=== PATIENT | male | born 1965 | race Caucasian/White ===

== ENCOUNTER 2016-11-24 16:20 | Inpatient (IN) | payer MEDICAID, SELFPAY ==
--- NOTE | 2016-11-24 17:00 | C.PDOC ---
History Of Present Illness 51 year old patient presents to the ED complaining of intermittent RLQ abdominal pain for the past few days. Patient states he has a normal appetite. He denies taking any pain medications. Patient reports he has a heart murmur. Nothing exacerbates the pain. Patient denies having any allergies, surgical history, past medical history, fever, chest pain, shortness of breath, vomiting , diarrhea, or dysuria. Time Seen by Provider: 11/24/16 16:59 Chief Complaint (Nursing): Abdominal Pain History Per: Patient History/Exam Limitations: no limitations Onset/Duration Of Symptoms: Days (2) Current Symptoms Are (Timing): Still Present Context: Other Severity: Mild Pain Scale Rating Of: 3 Location Of Pain/Discomfort: RLQ Radiation Of Pain To:: None Quality Of Discomfort: "Pain" Exacerbating Factors: None Alleviating Factors: None Recent travel outside of the [place]: No Past Medical History Reviewed: Historical Data, Nursing Documentation, Vital Signs Vital Signs: Last Vital Signs Temp 98.2 F 11/24/16 16:28 Pulse 86 11/24/16 18:25 Resp 20 11/24/16 18:25 BP 138/86 11/24/16 18:25 Pulse Ox 97 11/24/16 19:41 Family History: States: Unknown Family Hx - Social History Hx Tobacco Use: No Hx Alcohol Use: No Hx Substance Use: No - Immunization History Hx Tetanus Toxoid Vaccination: No Hx Influenza Vaccination: No Hx Pneumococcal Vaccination: No Review Of Systems Except As Marked, All Systems Reviewed And Found Negative. Constitutional: Negative for: Fever Cardiovascular: Negative for: Chest Pain Respiratory: Negative for: Shortness of Breath Gastrointestinal: Positive for: Abdominal Pain (RLQ). Negative for: Vomiting, Diarrhea Genitourinary: Negative for: Dysuria Physical Exam - Physical Exam Appears: Non-toxic, No Acute Distress Skin: Warm, Dry Head: Atraumatic, Normacephalic Eye(s): bilateral: Normal Inspection, EOMI Neck: Normal ROM, Supple Chest: Symmetrical Cardiovascular: Murmur (2 out of 6 systolic; known to patient) Respiratory: Normal Breath Sounds, No Rales, No Rhonchi, No Wheezing Gastrointestinal/Abdominal: Soft, Tenderness (RLQ), No Guarding, No Rebound Back: Normal Inspection, No CVA Tenderness Extremity: Normal ROM Neurological/Psych: Oriented x3, Normal Speech, Normal Cognition Gait: Steady ED Course And Treatment - Laboratory Results Result Diagrams: 11/24/16 17:21 11/24/16 17:21 O2 Sat by Pulse Oximetry: 97 (RA) Pulse Ox Interpretation: Normal Medical Decision Making Medical Decision Makin disc case w surgery resident. pagekeily Martinze. [address] Martinez who will admit and plan for surgery in am CT Abdomen and Pelvis With Intravenous Contrast. Read by: Tara Gutierrez MD CLINICAL HISTORY: 51 years old, male; Pain; Abdominal pain; Additional info: Rlq abdominal pain TECHNIQUE: Axial computed tomography images of the abdomen and pelvis with intravenous contrast. This CT exam was performed using one or more of the following dose reduction techniques : automated exposure control, adjustment of the mA and/or kV according to patient size, and/ or use of iterative reconstruction technique. Coronal and sagittal reformatted images were created and reviewed. CONTRAST: 100 mL of [id number] administered intravenously. EXAM DATE/TIME: 11/24/2016 5:09 PM COMPARISON: There are no prior studies for comparison. FINDINGS: Lower thorax: Heart size is normal. There is a small hiatal hernia. There is minimal scarring at the lung bases. ABDOMEN: Liver: There is fatty infiltration of the liver Gallbladder and bile ducts: unremarkable Pancreas: unremarkable Spleen: unremarkable Adrenals: unremarkable Kidneys and ureters: unremarkable Stomach and bowel: Stomach is incompletely distended. Rotation is normal. There are mildly dilated small bowel loops in the left upper quadrant. There are scattered air- fluid levels. There is no obstruction. Terminal ileum is unremarkable. Appendix is normal in caliber. There is inflammation in the right flank adjacent to the tip of the appendix, images 58-61, series 2. Colon is incompletely distended which limits evaluation. Appendix: See stomach and bowel PELVIS: Bladder: unremarkable Reproductive: Seminal vesicles and prostate are unremarkable. ABDOMEN and PELVIS: Intraperitoneal space: There is no free air or free fluid. Bones/joints: There are degenerative changes in the osseus structures. Soft tissues: unremarkable Vasculature: Vascular structures are unremarkable. Lymph nodes: There is shotty para-aortic adenopathy. IMPRESSION: Inflammation at the tip in the appendix in the right flank, appendicitis involving the appendiceal tip cannot be excluded; no acute solid visceral abnormality Additional findings as described above. Disposition - Disposition Disposition: HOSPITALIZED Disposition Time: 19:50 Condition: STABLE - Clinical Impression Clinical Impression: Appendicitis - Scribe Statement The provider has reviewed the documentation as recorded by the Scribe Jalyn Abdul Provider Attestation: All medical record entries made by the Scribe were at my direction and personally dictated by me. I have reviewed the chart and agree that the record accurately reflects my personal performance of the history, physical exam, medical decision making, and the department course for this patient. I have also personally directed, reviewed, and agree with the discharge instructions and disposition.
[2016-11-24 17:21] LABS: RBC URINE < 1 /hpf (0-3); URINE BILIRUBIN NEGATIVE (NEGATIVE); URINE BLOOD NEGATIVE (NEGATIVE); URINE COLOR Yellow (YELLOW); URINE GLUCOSE (UA) NORMAL (Normal); URINE KETONE NEGATIVE (NEGATIVE); URINE LEUKOCYTE ESTERASE NEG Leu/uL (Negative); URINE PROTEIN NEGATIVE (NEGATIVE); URINE UROBILINOGEN NORMAL mg/dL (0.2-1.0); WBC URINE < 1 /hpf (0-5)
[2016-11-24 17:33] LABS: BASO # 0.1 K/uL (0.0-0.2); BASO % 0.6 % (0.0-2.0); EOS # 0.1 K/uL (0.0-0.7); EOS % 1.5 % (0.0-4.0); HEMATOCRIT 41.5 % (35.0-51.0); LYMPH # 2.4 K/uL (1.0-4.3); MEAN CELL VOLUME 84.7 fL (80.0-94.0); MEAN CORPUSCULAR HEMOGLOBIN 27.9 pg (27.0-31.0); MEAN PLATELET VOLUME 8.7 fL (7.2-11.7); MONO # 0.7 K/uL (0.0-0.8); MONO % 7.6 % (0.0-10.0); RED CELL DISTRIBUTION WIDTH 13.3 % (11.5-14.5); WHITE BLOOD COUNT 8.9 K/uL (4.8-10.8)
[2016-11-24 17:38] LABS: CHLORIDE 98 mmol/L (98-107); POTASSIUM 3.3 mmol/L (3.6-5.2); SODIUM 141 mmol/L (132-148)
[2016-11-24 17:41] LABS: ALB/GLOB RATIO 1.3 (1.0-2.1); ALKALINE PHOSPHATASE 62 U/L (38-126); ALT/SGPT 30 U/L (21-72); AST/SGOT 19 U/L (17-59); BILIRUBIN,TOTAL 0.3 mg/dL (0.2-1.3); BLOOD UREA NITROGEN 19 mg/dL (9-20); CALCIUM 8.4 mg/dl (8.6-10.4); CARBON DIOXIDE 28 mmol/L (22-30); GFR AFRICAN-AMERICAN > 60; GLUCOSE,RANDOM 98 mg/dL (75-110); TOTAL PROTEIN 7.3 g/dL (6.3-8.3)
[2016-11-24] MEDS ORDERED: Iodixanol 320 MG/ML 100 ML BOTTLE IV ONE (18:48)
--- NOTE | 2016-11-24 19:36 | CT ---
EXAM: CT Abdomen and Pelvis With Intravenous Contrast. CLINICAL HISTORY: 51 years old, male; Pain; Abdominal pain; Additional info: Rlq abdominal pain TECHNIQUE: Axial computed tomography images of the abdomen and pelvis with intravenous contrast. This CT exam was performed using one or more of the following dose reduction techniques: automated exposure control, adjustment of the mA and/or kV according to patient size, and/or use of iterative reconstruction technique. Coronal and sagittal reformatted images were created and reviewed. CONTRAST: 100 mL of [id number] administered intravenously. EXAM DATE/TIME: 11/24/2016 5:09 PM COMPARISON: There are no prior studies for comparison. FINDINGS: Lower thorax: Heart size is normal. There is a small hiatal hernia. There is minimal scarring at the lung bases. ABDOMEN: Liver: There is fatty infiltration of the liver. Gallbladder and bile ducts: unremarkable Pancreas: unremarkable Spleen: unremarkable Adrenals: unremarkable Kidneys and ureters: unremarkable Stomach and bowel: Stomach is incompletely distended. Rotation is normal. There are mildly dilated small bowel loops in the left upper quadrant. There are scattered air-fluid levels. There is no obstruction. Terminal ileum is unremarkable. Appendix is normal in caliber. There is inflammation in the right flank adjacent to the tip of the appendix, images 58-61, series 2. Colon is incompletely distended which limits evaluation. Appendix: See stomach and bowel PELVIS: Bladder: unremarkable Reproductive: Seminal vesicles and prostate are unremarkable. ABDOMEN and PELVIS: Intraperitoneal space: There is no free air or free fluid. Bones/joints: There are degenerative changes in the osseus structures. Soft tissues: unremarkable Vasculature: Vascular structures are unremarkable. Lymph nodes: There is shotty para-aortic adenopathy. IMPRESSION: Inflammation at the tip in the appendix in the right flank, appendicitis involving the appendiceal tip cannot be excluded; no acute solid visceral abnormality Additional findings as described above.
[2016-11-24] MEDS ORDERED: Sodium Chloride 0.9% 1,000 ML IV ONE (19:39)
[2016-11-24] MEDS ORDERED: Piperacill/Tazo 3.375gm in Dex 50 ML IVPB STA (19:39)
[2016-11-24] MEDS ORDERED: Sodium Chloride 0.9% 1,000 ML ONE (19:44)
[2016-11-24 19:56] LABS: INR 1.2
[2016-11-24] MEDS ORDERED: Sodium Chloride 0.9% 1,000 ML IV SCH (20:00)
[2016-11-25] MEDS ORDERED: Morphine 4 MG/ML VIAL IVP PRN (00:34)
--- NOTE | 2016-11-25 00:44 | CP.PCM.HP ---
History of Present Illness - History of Present Illness History of Present Illness: General Surgery - Dr. Martinez 51yo M, otherwise healthy, presents to ED w/ RLQ abdominal pain x3 days. Pt states the pain started 3 days ago, he felt it in the lower abdomen b/l initially but it then migrated to the RLQ and became progressively worse prompting him to come to the ED. He denies any other symptoms. Pt states he was able to eat lunch earlier today but it made his pain worse. He denies any Nausea, Vomiting, Fevers, Chills, SOB/Chest pain, Dysuria, Hematuria, Diarrhea, Constipation. Pt states last BM was this morning and was normal. PMH/PSH: none No medications NKDA Pt had CT abd/pelvis done in ED which showed inflammation of the tip of the appendix consistent with tip appendicitis. Pt was admitted to surgical service. Present on Admission - Present on Admission Any Indicators Present on Admission: No Review of Systems - Review of Systems All systems: reviewed and no additional remarkable complaints except (as per HPI ) Past Patient History - Past Social History Smoking Status: Never Smoked - PSYCHIATRIC Hx Substance Use: No - SURGICAL HISTORY Hx Surgeries: No - ANESTHESIA Hx Anesthesia: No Meds Allergies/Adverse Reactions: Allergies Allergy/AdvReac Type Severity Reaction Status Date / Time No Known Allergies Allergy Verified 11/24/16 16:30 Physical Exam - Constitutional Appears: Well, No Acute Distress - Head Exam Head Exam: ATRAUMATIC, NORMAL INSPECTION, NORMOCEPHALIC - Eye Exam Eye Exam: Normal appearance - Respiratory Exam Respiratory Exam: NORMAL BREATHING PATTERN. absent: Respiratory Distress - GI/Abdominal Exam GI & Abdominal Exam: Distended (mild), Soft, Tenderness (RLQ tender at mcburney' s pt). absent: Firm, Guarding, Rebound, Rigid - Neurological Exam Neurological exam: Alert, Oriented x3 - Psychiatric Exam Psychiatric exam: Normal Affect, Normal Mood - Skin Skin Exam: Dry, Intact Results - Vital Signs Recent Vital Signs: Last Vital Signs Temp 98.5 F 11/24/16 23:01 Pulse 80 11/24/16 23:01 Resp 20 11/24/16 23:01 BP 143/90 11/24/16 23:01 Pulse Ox 95 11/24/16 23:01 - Labs Result Diagrams: 11/24/16 17:21 11/24/16 17:21 Assessment & Plan - Assessment and Plan (Free Text) Assessment: 51yo M w/ acute appendicitis -NPO, IVF -IV Abx - zosyn -OR in AM for Laparoscopic Appendectomy -DW Dr Juan Smith PGY2
[2016-11-25] MEDS: Potassium Chl 40 mEq in D5-1/2 1,000 ML IV SCH ×3 (01:00→21:05)
[2016-11-25] MEDS ORDERED: Piperacill/Tazo 3.375gm in Dex 50 ML IVPB SCH (06:00)
--- NOTE | 2016-11-25 10:55 | RAD ---
HISTORY: preop COMPARISON: No prior. FINDINGS: LUNGS: Minimal linear scar/ atelectasis at left base. PLEURA: No significant pleural effusion identified, no pneumothorax apparent. CARDIOVASCULAR: Normal. OSSEOUS STRUCTURES: No significant abnormalities. VISUALIZED UPPER ABDOMEN: Normal. OTHER FINDINGS: None. IMPRESSION: No active disease.
[2016-11-25] MEDS ORDERED: Midazolam 2 MG/2 ML VIAL ONE (11:45)
[2016-11-25] MEDS ORDERED: Propofol 10 mg/ml Inj (20 ML) ONE (11:45)
[2016-11-25] MEDS ORDERED: Lactated Ringer's 1,000 ML IV ONE (11:50)
[2016-11-25] MEDS ORDERED: Oxycodone/Acetaminophen 5/325 mg Tab PO PRN (12:39)
[2016-11-25] MEDS ORDERED: HYDROmorphone 0.5 mg/0.5 ml ISec IVP PRN (12:41)
--- NOTE | 2016-11-25 13:38 | PCM.SURG1 ---
Surgeon's Initial Post Op Note - Surgeon's Notes Surgeon: Juan Repair Electric Motor Assembler: PGY3 Type of Anesthesia: General Endo Pre-Operative Diagnosis: Acute appendicitis Operative Findings: see op note Post-Operative Diagnosis: Acute appendicitis Operation Performed: Laparoscopic appendectomy Specimen/Specimens Removed: appendix Estimated Blood Loss: EBL {In ML}: 10 Blood Products Given: N/A Drains Used: No Drains Post-Op Condition: Good Date of Surgery/Procedure: 11/25/16 Time of Surgery/Procedure: 11:35
[2016-11-26] MEDS: Potassium Chl 40 mEq in D5-1/2 1,000 ML IV SCH (00:37)
[2016-11-26 01:11] VITALS: O2SAT 96
[2016-11-26 08:32] VITALS: BP 118/70; PULSE 108; RESP 18; TEMP 98.3
--- NOTE | 2016-11-26 12:56 | CP.PCM.DIS ---
Provider - Provider Date of Admission: 11/24/16 19:59 Attending physician: Page Martinez MD Primary care physician: Dr. Martinez (surgery) Consults: none Time Spent in preparation of Discharge (in minutes): 45 Diagnosis - Discharge Diagnosis (1) Appendicitis Status: Acute Comment: see hospital course Hospital Course - Lab Results Lab Results: Most Recent Lab Values WBC 8.9 K/uL (4.8-10.8) 11/24/16 17:21 RBC 4.90 Mil/uL (4.40-5.90) 11/24/16 17:21 Hgb 13.7 g/dL (12.0-18.0) 11/24/16 17:21 Hct 41.5 % (35.0-51.0) 11/24/16 17:21 MCV 84.7 fL (80.0-94.0) 11/24/16 17:21 MCH 27.9 pg (27.0-31.0) 11/24/16 17: MCHC 33.0 g/dL (33.0-37.0) 11/24/16 17:21 RDW 13.3 % (11.5-14.5) 11/24/16 17:21 Plt Count 218 K/uL (130-400) 11/24/16 17:21 MPV 8.7 fL (7.2-11.7) 11/24/16 17:21 Neut % (Auto) 63.3 % (50.0-75.0) 11/24/16 17:21 Lymph % (Auto) 27.0 % (20.0-40.0) 11/24/16 17:21 Burke % (Auto) 7.6 % (0.0-10.0) 11/24/16 17:21 Eos % (Auto) 1.5 % (0.0-4.0) 11/24/16 17:21 Baso % (Auto) 0.6 % (0.0-2.0) 11/24/16 17:21 Neut # 5.6 K/uL (1.8-7.0) 11/24/16 17:21 Lymph # 2.4 K/uL (1.0-4.3) 11/24/16 17:21 Burke # 0.7 K/uL (0.0-0.8) 11/24/16 17:21 Eos # 0.1 K/uL (0.0-0.7) 11/24/16 17:21 Baso # 0.1 K/uL (0.0-0.2) 11/24/16 17:21 PT 13.6 SECONDS (9.7-12.2) H 11/24/16 19:42 INR 1.2 11/24/16 19:42 APTT 34 SECONDS (21-34) 11/24/16 19:42 Sodium 141 mmol/L (132-148) 11/24/16 17:21 Potassium 3.3 mmol/L (3.6-5.2) L 11/24/16 17:21 Chloride 98 mmol/L (98-107) 11/24/16 17:21 Carbon Dioxide 28 mmol/L (22-30) 11/24/16 17:21 Anion Gap 19 (10-20) 11/24/16 17:21 BUN 19 mg/dL (9-20) 11/24/16 17:21 Creatinine 0.9 MG/DL (0.8-1.5) 11/24/16 17:21 Est GFR ( Amer) > 60 11/24/16 17:21 Est GFR (Non-Af Amer) > 60 11/24/16 17:21 Random Glucose 98 mg/dL (75-110) 11/24/16 17:21 Calcium 8.4 mg/dl (8.6-10.4) L 11/24/16 17:21 Total Bilirubin 0.3 mg/dL (0.2-1.3) 11/24/16 17:21 AST 19 U/L (17-59) 11/24/16 17:21 ALT 30 U/L (21-72) 11/24/16 17:21 Alkaline Phosphatase 62 U/L (38-126) 11/24/16 17:21 Total Protein 7.3 g/dL (6.3-8.3) 11/24/16 17:21 Albumin 4.1 g/dL (3.5-5.0) 11/24/16 17:21 Globulin 3.2 gm/dL (2.2-3.9) 11/24/16 17:21 Albumin/Globulin Ratio 1.3 (1.0-2.1) 11/24/16 17:21 Lipase 40 U/L (23-300) 11/24/16 17:21 Urine Color Yellow (YELLOW) 11/24/16 17:06 Urine Clarity Clear (Clear) 11/24/16 17:06 Urine pH 6.0 (5.0-8.0) 11/24/16 17:06 Ur Specific Stearns 1.018 (1.003-1.030) 11/24/16 17:06 Urine Protein Negative mg/dL (NEGATIVE) 11/24/16 17:06 Urine Glucose (UA) Normal mg/dL (Normal) 11/24/16 17:06 Urine Ketones Negative mg/dL (NEGATIVE) 11/24/16 17:06 Urine Blood Negative (NEGATIVE) 11/24/16 17: Urine Nitrate Negative (NEGATIVE) 11/24/16 17:06 Urine Bilirubin Negative (NEGATIVE) 11/24/16 17:06 Urine Urobilinogen Normal mg/dL (0.2-1.0) 11/24/16 17:06 Ur Leukocyte Esterase Neg Cuong/uL (Negative) 11/24/16 17:06 Urine WBC (Auto) < 1 /hpf (0-5) 11/24/16 17:06 Urine RBC (Auto) < 1 /hpf (0-3) 11/24/16 17:06 - Hospital Course Hospital Course: On admission: 51yo M, otherwise healthy, presents to ED w/ RLQ abdominal pain x3 days. Pt states the pain started 3 days ago, he felt it in the lower abdomen b/l initially but it then migrated to the RLQ and became progressively worse prompting him to come to the ED. He denies any other symptoms. Pt states he was able to eat lunch earlier today but it made his pain worse. He denies any Nausea, Vomiting, Fevers, Chills, SOB/Chest pain, Dysuria, Hematuria, Diarrhea, Constipation. Pt states last BM was this morning and was normal. Hospital course: Pt was admitted on 11/24/[address] abd/pelvis done in ED which showed inflammation of the tip of the appendix consistent with tip appendicitis. Pt was admitted to surgical service, Dr. Martinez. Pt was made NPO , given IV fluids, and started on Zosyn. Pt had laparoscopic appendectomy on . Pt was monitored after surgery, and with resolving pain, no fever, normal bowel movement, and tolerating solid food diet, he was cleared for discharge. He was given instructions to follow up with Dr. Martinez as an oupatient within one week. Discharge Exam - Head Exam Head Exam: ATRAUMATIC, NORMAL INSPECTION, NORMOCEPHALIC - Eye Exam Eye Exam: EOMI Pupil Exam: PERRL - ENT Exam ENT Exam: Mucous Membranes Moist - Respiratory Exam Respiratory Exam: NORMAL BREATHING PATTERN - Cardiovascular Exam Cardiovascular Exam: REGULAR RHYTHM, +S1, +S2 - GI/Abdominal Exam GI & Abdominal Exam: Normal Bowel Sounds, Soft, Tenderness (appropriately around surgical site) - Extremities Exam Extremities exam: normal inspection - Neurological Exam Neurological exam: Alert, Oriented x3 - Skin Skin Exam: Normal Color, Warm Discharge Plan - Follow Up Plan Condition: GOOD Disposition: HOME/ ROUTINE Additional Instructions: Pt stable for discharge per Dr. Martinez. Pt will be given NO prescriptions at the time of discharge. He should follow up with Dr. Martinez in her office within one week, preferably by the end of this week. Her office can be reached at [phone]. NEWLY PRESCRIBED MEDICATIONS: NONE
--- NOTE | 2016-11-26 16:17 | OP ---
PROCEDURE DATE: 11/25/2016 SURGEON: Dr. Martinez EXPERT MEDICAL WRITER: Dr. Skelton ANESTHESIA: General, Dr. Murillo. PREOPERATIVE DIAGNOSIS: Acute appendicitis. POSTOPERATIVE DIAGNOSIS: Acute appendicitis. PROCEDURE: Laparoscopic appendectomy. DESCRIPTION OF OPERATION: With the patient in the supine position under adequate general anesthesia, the abdomen was prepped and draped in the usual sterile manner. Veress needle puncture was performe d at the umbilicus with insufflation to 15 cm water pressure of CO2 and a 5 mm laparoscopic trocar wa s inserted via an infraumbilical incision. Under direct vision, 5 and 12 mm trocars were inserted in the left lower quadrant. The appendix was visualized and elevated. There was noted to be marked in flammation primarily at the most distal portion of the appendix with ecchymosis or hematoma extending into the epiploic fat at the tip of the appendix. The mesoappendix was dissected and divided with a n Endo-LAXMI stapler with the area of the appendiceal artery being reinforced with Hemoclips. The appe ndix itself was then amputated using the Endo LAXMI stapler. The stump was examined for hemostasis. T he appendix was placed in a specimen retrieval bag and removed via the 12 mm port site. The pelvis a nd right gutter were irrigated and suctioned. Pneumoperitoneum was released and the trocars were rem dorie. The 12 mm port site was closed with a [id number] fascial suture of 0 Vicryl. All incisio ns were closed with 4-0 Monocryl subcuticular sutures and Steri-Strips. Dry sterile dressings were a pplied. The patient tolerated the procedure well and transferred to recovery room in stable conditio n. Estimated blood loss for the procedure was 10 mL. Page Martinez MD cc: 58 TT: 11/26/2016 16:17:34 sn
--- NOTE | 2016-11-26 16:24 | CARD ---
APPROVED REPORT EKG Measurement Heart [id number] [id number] <Conclusion> Normal sinus rhythm Nonspecific T wave abnormality Abnormal ECG
== END 2016-11-26 13:48 | disposition home or self-care (01) | DRG 343 ==
LOC: C.ER 16:20 → C.9E 19:59 → C.6T 21:38 → C.9E 21:45 → C.6T 21:50
PROVIDERS: ADMIT Specialist; ATTEND Specialist
PROC: 0DTJ4ZZ Resection of Appendix, Percutaneous Endoscopic Approach (ICD-10-PCS; principal; 2016-11-25 11:50)
DX: K35.80 Unspecified acute appendicitis (principal)

== ENCOUNTER 2017-02-06 13:25 | Emergency (ER) | payer OTHER, SELFPAY ==
[2017-02-06 13:40] VITALS: TEMP 98.5; O2SAT 98
[2017-02-06] MEDS ORDERED: Tetracaine 0.5% Ophth (OR ONLY) ONE (13:50)
[2017-02-06] MEDS ORDERED: Fluorescein 1 mg Ophthalmic Strip ONE (13:50)
--- NOTE | 2017-02-06 14:32 | C.PDOC ---
History Of Present Illness 51 y/o male presents to the ED with complains of 2-3 days of itching and redness to left eye. Pt reports foreign body sensation but unsure of what it could be. Denies contact lens use. Denies vision changes, fever or any other complaints. Time Seen by Provider: 02/06/17 14:11 Chief Complaint (Nursing): Eye Problem History Per: Patient History/Exam Limitations: no limitations Onset/Duration Of Symptoms: Days Current Symptoms Are (Timing): Still Present Injury To Eye?: No Severity: Mild Wears Contact Lens?: No Associated Symptoms: FB Sensation, Itching, Other (redness). denies: Decreased Vision Recent travel outside of the [place]: No Past Medical History Reviewed: Historical Data, Nursing Documentation, Vital Signs Vital Signs: Last Vital Signs Temp 98.5 F 02/06/17 13:30 Pulse 95 H 02/06/17 14:56 Resp 18 02/06/17 14:56 BP 138/89 02/06/17 14:56 Pulse Ox 98 02/06/17 14:56 Surgical History: Appendectomy - [facility] Procedures RESECTION OF APPENDIX, PERCUTANEOUS ENDOSCOPIC APPROACH (11/24/16) Family History: States: Unknown Family Hx - Social History Hx Tobacco Use: No Hx Alcohol Use: No Hx Substance Use: No - Immunization History Hx Tetanus Toxoid Vaccination: No Hx Influenza Vaccination: No Hx Pneumococcal Vaccination: No Review Of Systems Except As Marked, All Systems Reviewed And Found Negative. Constitutional: Negative for: Fever Eyes: Positive for: Redness (left), Other (itching, foreign body sensation to left eye). Negative for: Vision Change Physical Exam - Physical Exam Appears: Non-toxic, No Acute Distress Skin: Warm, Dry, No Rash Head: Atraumatic, Normacephalic Eye(s): bilateral: PERRL, EOMI, right: Normal Inspection, left: Other ( conjunctival injection, (+) tearing, crusting to eyelid, no foreign body on lid eversion) Oral Mucosa: Moist Neck: Normal ROM Neurological/Psych: Oriented x3, Normal Speech, Normal Motor Gait: Steady ED Course And Treatment O2 Sat by Pulse Oximetry: 98 (room air) Pulse Ox Interpretation: Normal Disposition - Disposition Referrals: Norman Castro MD [Staff Provider] - Disposition: HOME/ ROUTINE Disposition Time: 14:28 Condition: GOOD Additional Instructions: Follow up with the Eye doctor within 1-2 days. Return if worsened. Prescriptions: Tobramycin 0.3% [Tobramycin 5 Ml] 1 drop OU TID #1 bottle Instructions: Conjunctivitis (ED) - Clinical Impression Clinical Impression: Conjunctivitis - PA / BERRY GROWER / Resident Statement MD/DO has reviewed & agrees with the documentation as recorded. - Scribe Statement The provider has reviewed the documentation as recorded by the Errolibjignesh Simmons All medical record entries made by the Ezekiel were at my direction and personally dictated by me. I have reviewed the chart and agree that the record accurately reflects my personal performance of the history, physical exam, medical decision making, and the department course for this patient. I have also personally directed, reviewed, and agree with the discharge instructions and disposition.
[2017-02-06 14:57] VITALS: BP 138/89; PULSE 95; RESP 18
== END 2017-02-06 14:57 | disposition home or self-care (01) ==
LOC: C.ER 13:25
DX: H10.9 Unspecified conjunctivitis (principal)

== ENCOUNTER 2018-10-21 07:56 | Outpatient (CLI) | payer SELFPAY | END 2018-10-21 07:57 | disposition home or self-care (01) | LOC: C.CARD 07:56 ==